=== PATIENT | female | born 1990 | race Caucasian/White ===

== ENCOUNTER 2018-11-16 19:51 | Emergency (ER) | payer MEDICAID, SELFPAY ==
[2018-11-16 20:16] VITALS: BP 120/75; PULSE 80; RESP 16; TEMP 36.6; O2SAT 100
--- NOTE | 2018-11-16 20:27 | W.ED.GENAD ---
Discharge Plan Disposition Patient Disposition: HOME Condition: Stable Discharge Details Chief Complaint: FlankPain Clinical Impression: Renal colic on left side Primary Care Provider: Eder Betts ED Provider: Erick Garcia Home Meds and New Rx's Prescriptions: New ondansetron 4 mg tablet,disintegrating 4 mg PO TID PRN (Reason: nausea and vomiting) 5 Days Qty: 30 RF: 0 Discharge Instructions Instructions: Renal Colic (ED) Additional Instructions: follow up with your OBGYN provider take 1000mg tylenol every 6 hours for pain as needed for nausea take 1-2 tablets of the zofran if pain significantly worsens despite tylenol or you have persistent vomit return to the emergency department for reevaluation Medical Decision Making 28 yo female who is 37 weeks with her 1st child and due Dec 07, comes in with left flank pain and n/v off and on for 1 month and worsened again tonight. She has been seen at [place] and [place] recently in the past few weeks and states she had an u/s done showing likely kidney stone on the left per pt. Tonight she had acute onset of similar symptoms, tried taking tylenol but had vomit so came here. Localizes pain to the left cva area. HAs no abdominal tenderness on exam. Her symptoms due seem consistent with renal colic. No fevers or urinary symptoms so less liikely pyelo. No hypoxia, tachycardia or pleuritic chest pain so doubt PE and no evidence of dvt on exam. No abdominal tenderness to suggest pathology such as appendicitis. WIll provide IVF and nausea medicine at her request and monitor pt's nausea better, and pain improved with tylenol. I got records from [facility] and she had an u/s on 10/31 showing grade 2 hydro on the left and intact ureteral jet though doesn't exclude obstructing stone. She still has no abdominal pain. She feels comfortable enough to be d/c'd and has f/u with her ob in the AM. She will be d/c'd with antiemetics and advised f/u with ob and return if worsening Differential Diagnosis kidney stone, pyelo, back spasm Lab Data Lab results reviewed: Yes I reviewed the patient's lab results. HPI General Mode of arrival: ambulatory. Date/Time Provider Initiated Documentation: 11/16/18 20:14. Limitations to Documentation: no limitations. Information obtained by: patient. History of Present Illness 28 year old F presents to the emergency department with the chief complaint of left flank pain, described as moderate, Quality is described as stabbing, and it has been intermittent. No relieving factors improve symptom(s), No exacerbating factors reported . Patient notes nausea/vomiting. Patient did receive the following treatments prior to arrival, none Related Data Home Medications Medication Instructions Recorded Confirmed ondansetron 4 mg PO TID PRN 5 Days #30 tab 11/16/18 Previous Rx's Medication Instructions Recorded ondansetron 4 mg PO TID PRN 5 Days #30 tab 11/16/18 Allergies Allergy/AdvReac Type Severity Reaction Status Date / Time No Known Allergies Allergy Unverified 05/14/16 17:52 General Stated Complaint: FlankPain DINESH: 3 Review of Systems Review of Systems All systems reviewed & are unremarkable except as noted in HPI and below Constitutional Denies chills, Denies fever(s) and Denies weakness Eyes Denies loss of vision ENT Denies change in voice Cardiovascular Denies chest pain and Denies dyspnea Respiratory Denies dyspnea Gastrointestinal Denies abdominal pain Genitourinary Denies dysuria Neurologic Denies loss of vision and Denies weakness Psychiatric Denies depression Allergic/Immunologic Denies urticaria PFSH Social History Smoking/Tobacco Use Status: Former Tobacco Use Exam Const General: cooperative Orientation: alert HENMT Head: normal to inspection Ears: external ears normal General nose exam: external nose normal Mouth: moist mucous membranes Eyes General: appearance normal, both eyes and all related structures Neck Neck: normal visual inspection Resp Effort & Inspection: normal respiratory effort and able to speak in complete sentences Cardio Rate: regular rate Skin General skin exam: no rashes or lesions noted Neuro General: alert and oriented x3 Extrem General: normal to inspection Psych Mental Status: mental status grossly normal Course Vital Signs Temperature 36.6 C 11/16/18 20:16 Pulse 80 11/16/18 20:16 Respiratory Rate 16 11/16/18 20:16 Blood Pressure 120/75 11/16/18 20:16 Pulse Oximetry 100 11/16/18 20:16 Temperature 36.6 C 11/16/18 20:16 Temperature Source Skin 11/16/18 20:16 Pulse 80 11/16/18 20:16 Respiratory Rate 16 11/16/18 20:16 Respiratory Effort 11/16/18 20:19 Blood Pressure 120/75 11/16/18 20:16 Blood Pressure Position Sitting 11/16/18 20:16 Pulse Oximetry 100 11/16/18 20:16 Oxygen Delivery Method Room Air 11/16/18 20:16 Oxygen Flow Rate 0 11/16/18 20:16 Pain Level 8 11/16/18 20:21
--- NOTE | 2018-11-16 20:31 | ED.GENADUL_ITS ---
Discharge Plan Disposition Patient Disposition: HOME Condition: Stable Discharge Details Chief Complaint: FlankPain Clinical Impression: Renal colic on left side Primary Care Provider: Eder Betts ED Provider: Erick Garcia Home Meds and New Rx's Prescriptions: New ondansetron 4 mg tablet,disintegrating 4 mg PO TID PRN (Reason: nausea and vomiting) 5 Days Qty: 30 RF: 0 Discharge Instructions Instructions: Renal Colic (ED) Additional Instructions: follow up with your OBGYN provider take 1000mg tylenol every 6 hours for pain as needed for nausea take 1-2 tablets of the zofran if pain significantly worsens despite tylenol or you have persistent vomit return to the emergency department for reevaluation Medical Decision Making 28 yo female who is 37 weeks with her 1st child and due Dec 07, comes in with left flank pain and n/v off and on for 1 month and worsened again tonight. She has been seen at [place] and [place] recently in the past few weeks and states she had an u/s done showing likely kidney stone on the left per pt. Tonight she had acute onset of similar symptoms, tried taking tylenol but had vomit so came here. Localizes pain to the left cva area. HAs no abdominal tenderness on exam. Her symptoms due seem consistent with renal colic. No fevers or urinary symptoms so less liikely pyelo. No hypoxia, tachycardia or pleuritic chest pain so doubt PE and no evidence of dvt on exam. No abdominal tenderness to suggest pathology such as appendicitis. WIll provide IVF and nausea medicine at her request and monitor pt's nausea better, and pain improved with tylenol. I got records from [place] and she had an u/s on 10/31 showing grade 2 hydro on the left and intact ureteral jet though doesn't exclude obstructing stone. She still has no abdominal pain. She feels comfortable enough to be d/c'd and has f/u with her ob in the AM. She will be d/c'd with antiemetics and advised f/u with ob and return if worsening Differential Diagnosis kidney stone, pyelo, back spasm Lab Data Lab results reviewed: Yes I reviewed the patient's lab results. HPI General Mode of arrival: ambulatory . Date/Time Provider Initiated Documentation: 11/16/18 20:14 . Limitations to Documentation: no limitations . Information obtained by: patient . History of Present Illness 28 year old F presents to the emergency department with the chief complaint of left flank pain, described as moderate, Quality is described as stabbing, and it has been intermittent. No relieving factors improve symptom(s), No exacerbating factors reported . Patient notes nausea/vomiting. Patient did receive the following treatments prior to arrival, none Related Data Home Medications Medication Instructions Recorded Confirmed ondansetron 4 mg PO TID PRN 5 Days #30 tab 11/16/18 Previous Rx's Medication Instructions Recorded ondansetron 4 mg PO TID PRN 5 Days #30 tab 11/16/18 Allergies Allergy/AdvReac Type Severity Reaction Status Date / Time No Known Allergies Allergy Unverified 05/14/16 17:52 General Stated Complaint: FlankPain DINESH: 3 Review of Systems Review of Systems All systems reviewed & are unremarkable except as noted in HPI and below Constitutional Denies chills, Denies fever(s) and Denies weakness Eyes Denies loss of vision ENT Denies change in voice Cardiovascular Denies chest pain and Denies dyspnea Respiratory Denies dyspnea Gastrointestinal Denies abdominal pain Genitourinary Denies dysuria Neurologic Denies loss of vision and Denies weakness Psychiatric Denies depression Allergic/Immunologic Denies urticaria PFSH Social History Smoking/Tobacco Use Status: Former Tobacco Use Exam Const General: cooperative Orientation: alert HENMT Head: normal to inspection Ears: external ears normal General nose exam: external nose normal Mouth: moist mucous membranes Eyes General: appearance normal, both eyes and all related structures Neck Neck: normal visual inspection Resp Effort & Inspection: normal respiratory effort and able to speak in complete sentences Cardio Rate: regular rate Skin General skin exam: no rashes or lesions noted Neuro General: alert and oriented x3 Extrem General: normal to inspection Psych Mental Status: mental status grossly normal Course Vital Signs Temperature 36.6 C 11/16/18 20:16 Pulse 80 11/16/18 20:16 Respiratory Rate 16 11/16/18 20:16 Blood Pressure 120/75 11/16/18 20:16 Pulse Oximetry 100 11/16/18 20:16 Temperature 36.6 C 11/16/18 20:16 Temperature Source Skin 11/16/18 20:16 Pulse 80 11/16/18 20:16 Respiratory Rate 16 11/16/18 20:16 Respiratory Effort 11/16/18 20:19 Blood Pressure 120/75 11/16/18 20:16 Blood Pressure Position Sitting 11/16/18 20:16 Pulse Oximetry 100 11/16/18 20:16 Oxygen Delivery Method Room Air 11/16/18 20:16 Oxygen Flow Rate 0 11/16/18 20:16 Pain Level 8 11/16/18 20:21
[2018-11-16] MEDS: Ondansetron 4 MG/2 ML VIAL IVP (20:41)
[2018-11-16] MEDS: Normal Saline 1,000 ML 1000 ML IV (20:42)
[2018-11-16 20:55] LABS: Abs Immature Grans 0.05 k/cumm (0.0-0.09); Absolute Basophil Count 0.02 k/cumm (0.0-0.2); Absolute Eosinophil Count 0.06 k/cumm (0.0-0.7); Absolute Lymphocyte Count 1.49 k/cumm (1.2-3.4); Absolute Monocyte Count 0.63 k/cumm (0.11-0.7); Absolute Neutrophil Count 8.23 k/cumm (1.2-6.7); Basophils % 0.2; Eosinophils % 0.6; HCT 36.8 % (36.0-46.0); HGB 12.4 g/dL (12.0-15.5); Immature Grans % 0.5; Lymphocytes % 14.2; Mean Corp. HGB Concentration 33.7 g/dL (32.0-36.0); Mean Corpuscular Hemoglobin 29.3 pg (27.0-33.0); Mean Platelet Volume 11.4 fL (8.0-11.0); Neutrophils % 78.5; Platelet Count 139 x1000/uL (130-400); RBC 4.23 m/cumm (4.00-5.20); RBC Distribution Width 13.3 % (11.7-14.6); White Blood Cell Count 10.48 k/cumm (4.4-10.8)
[2018-11-16 21:15] LABS: ALT 15 U/L (12-78); AST 17 U/L (15-37); Albumin 3.1 g/dL (3.4-5.0); Alkaline Phosphatase 107 U/L (46-116); BUN 10 mg/dL (7-18); Bilirubin, Total 0.4 mg/dL (0.2-1.0); Chloride 102 mmol/L (98-107); Glucose 94 mg/dL (70-100); Magnesium 1.6 mg/dL (1.8-2.4); Potassium 3.6 mmol/L (3.5-5.1); Sodium 139 mmol/L (136-145)
[2018-11-16] MEDS: ACETAMINOPHEN 1,000 MG/100 ML BTL 400 MG IVPB (21:40)
[2018-11-16] MEDS: MORPHine 10 MG/ML VIAL 6 MG IM (22:42)
[2018-11-16] MEDS: Ondansetron O.D.T. 4 MG TABEF PO (22:47)
[2018-11-16 23:03] VITALS: BP 118/66; PULSE 82; RESP 16; TEMP 36.6; O2SAT 99
[2018-11-16] MEDS: oxyCODONE 5 MG TAB (23:19)
== END 2018-11-16 23:20 | disposition home or self-care (01) ==
LOC: ER 22:58
PROVIDERS: Emergency Provider Emergency Medicine; PCP Family Medicine
DX: N23 Unspecified renal colic (principal); R11.2 Nausea with vomiting, unspecified; Z33.1 Pregnant state, incidental; Z3A.37 37 weeks gestation of pregnancy; Z87.891 Personal history of nicotine dependence
CPT/HCPCS: 36415; 80053; 96361; 96372; 96374; 96375; 99284; 83735; 85025; J0131; J2270; J2405

== ENCOUNTER 2021-07-16 20:50 | Outpatient (REF) | payer MEDICAID, SELFPAY ==
[2021-07-18 12:04] LABS: COVID-19 RT-PCR UVMMC Result Negative (Negative)
== END 2021-07-16 20:51 | disposition home or self-care (01) ==
LOC: LBN 20:50
PROVIDERS: PCP Family Medicine; Visit Provider Nurse Practitioner Family
DX: J02.9 Acute pharyngitis, unspecified (principal); Z20.822 Contact with and (suspected) exposure to COVID-19
CPT/HCPCS: U0003; 87070

== ENCOUNTER 2022-10-26 13:58 | Emergency (ER) | payer MEDICAID, SELFPAY ==
--- NOTE | 2022-10-26 14:00 | RT.EKG_ITS ---
APPROVED REPORT Exam: Resting ECG Reason for Exam: dizzy Patient Location: E HR:72 bpm ECG Measurements Heart Rate 72 AXIS ID 144 P 56 QRSd 75 QRS 82 QT 368 T 64 QTc 402 Conclusion Sinus rhythm...normal P axis, V-rate 60- 99
[2022-10-26 14:03] VITALS: BP 125/80; PULSE 76; RESP 18; TEMP 36.6; O2SAT 98
[2022-10-26 14:12] VITALS: RESP 18
--- NOTE | 2022-10-26 15:17 | W.ED.GENAD ---
Discharge Plan Disposition Patient Disposition: Home Condition: Improving Discharge Details Clinical Impression: Benign paroxysmal vertigo, Anxiety Primary Care Provider: Eder Betts ED Provider: Slim Guan Home Meds and New Rx's Prescriptions: No Action hydroxyzine HCl 25 mg tablet 1 tab PO PRN PRN Discharge Instructions Instructions: Vertigo (ED), Anxiety (ED) Additional Instructions: Stay well-hydrated and get plenty of rest. Please follow-up with your primary care provider if not improving in the next week. If you develop any new or significant worsening of symptoms, persistent symptoms that will not go away, or change in your condition feel free to return to the emergency department for reassessment. You may continue to take your medication that was previously prescribed. Referrals: Eder Betts [Primary Care Provider] - 1 week (If not improving) Medical Decision Making Patient reports intermittent dizziness for the past 2 weeks. 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 Does state for about a week she has had mild cold symptoms but has been testing negative for COVID and children also recently had illness and have recovered. Physical exam shows a normal neuro exam, on Truong-Hallpike maneuver patient did have slight sensation of dizziness to the right. Immediately went on to perform the Kenyatta maneuver. Monitor patient afterwards and patient stated resolution of symptoms. She was able to walk through the department with no further dizziness. Patient was already prescribed meclizine by a urgent care she saw a couple days ago. Thoroughly also discussed with patient her anxiety type symptoms that I do feel is making this worse. Thoroughly discussed management of anxiety including using the hydroxyzine she is already prescribed and following up with counseling services. At this time I did discuss with patient the options of blood work CT imaging and possible further advanced imaging based upon physical exam and findings I have low suspicion of intracranial mass, cerebellar/posterior stroke, or other intracranial abnormality or after discussion of diagnosis and plan of care patient has no further needs, questions, or concerns and states clear understanding to return to the emergency department for any worsening symptoms. This documentation was generated using [employer] system, please disregard any oddities of phrase or misspellings. HPI General Mode of arrival: ambulatory. Date/Time Provider Initiated Documentation: 10/26/22 14:03. Limitations to Documentation: no limitations. Information obtained by: patient and RN notes reviewed. History of Present Illness 32 year old F presents to the emergency department with the chief complaint of dizziness, described as moderate, Quality is described as other (denies pain ), Patient started experiencing this week(s) (2) and it has been intermittent. Rest improves symptom(s), Movement worsens symptoms . Patient did receive the following treatments prior to arrival, other (Meclizine) Related Data Home Medications Medication Instructions Recorded Confirmed hydroxyzine HCl 25 mg tablet 1 tab PO PRN PRN 10/26/22 10/26/22 Allergies Allergy/AdvReac Type Severity Reaction Status Date / Time amoxicillin Allergy Mild Rash Verified 10/26/22 14:08 General Stated Complaint: Dizzy/Sync DINESH: 3 Review of Systems Constitutional Constitutional: Denies chills, Denies fever(s), Denies headache(s) and Denies weakness Eyes Eyes: Denies change in vision and Denies loss of vision ENT Ears, Nose, Mouth, and Throat: Reports vertigo, Reports dizziness, Denies headache(s), Reports nasal congestion (x months) and Denies neck pain Cardiovascular Cardiovascular: Denies chest pain, Denies syncope and Denies dyspnea Respiratory Respiratory: Denies cough and Denies dyspnea Gastrointestinal Gastrointestinal: Denies abdominal pain, Reports nausea and Denies vomiting Genitourinary Genitourinary: Reports system reviewed and no additional complaints, except as documented Musculoskeletal Musculoskeletal: Denies neck pain Integumentary/Breasts Skin/Breast: Denies rash Neurologic Neurologic: Reports as per HPI, Denies confusion, Reports vertigo, Reports dizziness, Denies syncope, Denies headache(s), Denies loss of vision and Denies weakness Psychiatric Psychiatric: Reports anxiety and Denies confusion PFSH All Active Problems Benign paroxysmal vertigo (Acute) Anxiety (Chronic) Social History Smoking/Tobacco Use Status: Former Tobacco Use Smoking risk assessment performed?: Yes Alcohol Intake: current Alcohol Intake frequency: a few times a month Alcohol type: beer Drug use: Never Substance use type: does not use Do you feel safe at home: Yes Do you feel safe in your relationship?: Yes Exam Const General: cooperative, healthy appearing, no acute distress and well groomed Orientation: alert, awake and oriented x3 HENMT Head: normal to inspection Ears: hearing grossly normal bilaterally and TM's normal bilaterally Mouth: oral mucosae normal and moist mucous membranes Throat: posterior oropharynx normal Eyes Visual Dumont: normal visual dumont by confrontation Alignment and Position: alignment normal Periorbital: periorbital findings normal Eyelids: eyelids normal Sclera: sclerae normal Pupils: PERRL EOM: EOM intact bilaterally Neck Neck: normal visual inspection, full ROM, no lymphadenopathy and no meningeal signs Resp Effort & Inspection: normal respiratory effort and able to speak in complete sentences Auscultation: clear to auscultation bilaterally Cardio Rate: regular rate Rhythm: regular rhythm Heart Sounds: S1 normal and S2 normal Neuro General: patient alert, patient awake, patient oriented x3, gait normal, tone normal, moves all extremities, CN's II-XI intact bilaterally and not confused Cognition: normal cognition Speech: speech normal Motor: muscle tone normal throughout, strength 5/5 throughout, no pronator drift, no movement abnormalities noted and no fasciculations Sensory Exam: no sensory deficits noted Coordination: Romberg test normal and Does not sway with eyes open Course Vital Signs Vital signs: Vital Signs Temperature 36.6 C 10/26/22 14:03 Pulse 76 10/26/22 14:03 Respiratory Rate 18 10/26/22 14:03 Blood Pressure 125/80 10/26/22 14:03 Pulse Oximetry 98 10/26/22 14:03 Temperature 36.6 C 10/26/22 14:03 Temperature Source Tympanic 10/26/22 14:03 Pulse 76 10/26/22 14:03 Respiratory Rate 18 10/26/22 14:12 Respiratory Effort Non-Labored 10/26/22 14:12 Respiratory Depth Normal 10/26/22 14:12 Respiratory Pattern Normal 10/26/22 14:12 Blood Pressure 125/80 10/26/22 14:03 Blood Pressure Position Sitting 10/26/22 14:03 Pulse Oximetry 98 10/26/22 14:03 Oxygen Delivery Method Room Air 10/26/22 14:03 Oxygen Flow Rate 0 10/26/22 14:03 Pain Level 0 10/26/22 14:03 PAWSS Have you Been Recently Intoxicated or Drunk Within the Last 30 days?: No Have you Ever Experienced Previous Episodes of Alcohol Withdrawal?: No Have you ever Experienced Withdrawal Seizures?: No Have you ever Experienced Delirium Tremens(DT)s?: No Have you ever undergone Alcohol Rehabilitation Treatment (i.e, inpt ot outpatient treatment programs)?: No Have you ever Experienced Blackouts?: No Have you ever Combined Alcohol with other Downers within the last 90 days?: No Have you ever Combined Alcohol with any other Substance of Abuse during the last 90 days?: No Positive Blood Alcohol level on Presentation? [PCS.BAL]: No Evidence of Increased Autonomic Activity (i.e. HR>120, tremor, sweating, agitation, nausea)?: No Result: 0
== END 2022-10-26 15:51 | disposition home or self-care (01) ==
PROVIDERS: Emergency Provider Nurse Practitioner Family; PCP Family Medicine
DX: H81.11 Benign paroxysmal vertigo, right ear (principal)
CPT/HCPCS: 87637; 93005; 99283; 93010

== ENCOUNTER 2022-11-18 13:33 | Emergency (ER) | payer MEDICAID, SELFPAY ==
[2022-11-18] VITALS (107 sets, daily range): BP systolic 96–118; BP diastolic 59–79; PULSE 71–88; RESP 9–24; TEMP 36.6; O2SAT 97–100
--- NOTE | 2022-11-18 13:30 | RT.EKG_ITS ---
APPROVED REPORT Exam: Resting ECG Reason for Exam: chest pain Patient Location: E HR:71 bpm ECG Measurements Heart Rate 71 AXIS AZ 140 P -28 QRSd 74 QRS 77 QT 365 T 31 QTc 398 Conclusion Sinus rhythm...normal P axis, V-rate 60- 99
--- NOTE | 2022-11-18 14:22 | ED.GENADUL_ITS ---
Discharge Plan Disposition Patient Disposition: Home Condition: Stable Discharge Details Clinical Impression: Anxiety, Chest pain Primary Care Provider: Eder Betts ED Provider: Ron King Home Meds and New Rx's Prescriptions: Continued hydroxyzine HCl 25 mg tablet 1 tab PO PRN PRN lorazepam 0.5 mg tablet 0.5 mg PO Q8H PRN Label Comments: TAKE ONE TABLET BY MOUTH EVERY 8 HOURS NEEDED FOR ANXIETY Discharge Instructions Additional Instructions: Please follow-up with your program specialist tomorrow as scheduled. Please follow-up with your primary care physician. Call today to arrange follow-up. Return to the ER immediately for any worsening or new concerning symptoms. Referrals: Eder Betts [Primary Care Provider] - Medical Decision Making 1424??32-year-old female with history of anxiety disorder and chronic headaches, here with burning chest discomfort over the past 4 to 5 days after stopping propanolol which she had been on for the past 1 to 2 weeks for treatment of headaches. Considered PE. PERC applies. Presentation is not consistent with ACS. EKG was reviewed and interpreted by me: Sinus rhythm 71 bpm, normal axis, nondiagnostic. Please see report. Suspect costochondritis versus anxiety. Anxiety certainly contributing to presentation today. Considered thyroid dysfunction. Patient notes she has not had thyroid level sent. I will provide Valium 5 mg orally. Plan to obtain screening labs and reassess. --Acetaminophen administered for headache. 1550 --labs reviewed and nondiagnostic. Normal thyroid function. Normal troponin. No significant electrolyte abnormalities. Patient reassessed and notes feeling much better. -- Chest x-ray reviewed and interpreted by me: No pneumothorax. No acute cardiopulmonary disease. Plan for discharge with outpatient follow-up. Usual customary discharge instructions reviewed with the patient. She has follow-up tomorrow with psychiatry. She understands importance of maintaining this appointment and that she can return to the [facility] should she have worsening or new concerning symptoms. Lab Data Lab results reviewed: Yes I reviewed the patient's lab results. Labs: Laboratory Tests Range/Units 11/18/22 11/18/22 14:30 14:30 WBC (4.4-10.8) 10^3/uL 5.80 RBC (3.93-5.22) 10^6/uL 3.97 Hgb (11.2-15.7) g/dL 11.6 Hct (36.0-46.0) % 35.3 L MCV (80-95) fL 89 MCH (27.0-33.0) pg 29.2 MCHC (32.0-36.0) % 32.9 RDW (11.7-14.6) % 12.4 Plt Count (130-400) 10^3/uL 240 MPV (8.0-11.0) fL 9.6 Immature Gran % 0.2 Neutrophils % 60.4 Lymphocytes % 29.5 Monocytes % 7.8 Eosinophils % 1.2 Basophils % 0.9 Nucleated RBC % (0.0-0.3) % 0.0 Absolute Neutrophils (1.2-6.7) 10^3/uL 3.51 Absolute Lymphocytes (1.2-3.4) 10^3/uL 1.71 Absolute Monocytes (0.1-0.8) 10^3/uL 0.45 Absolute Eosinophils (0.0-0.7) 10^3/uL 0.07 Absolute Basophils (0.0-0.2) 10^3/uL 0.05 Sodium (136-145) mmol/L 140 Potassium (3.5-5.1) mmol/L 3.6 Chloride (98-107) mmol/L 105 Carbon Dioxide (21.0-32.0) mmol/L 30.1 Anion Gap (3-11) mmol/L 4.9 BUN (7-18) mg/dL 11 Creatinine (0.55-1.02) mg/dL 0.9 Est GFR (CKD-EPI 2020) (mL/min/1.73m2) 87.11 Glucose (74-106) mg/dL 140 H Calcium (8.5-10.1) mg/dL 8.8 Magnesium (1.8-2.4) mg/dL 2.1 Total Bilirubin (0.2-1.0) mg/dL 0.5 AST (15-37) U/L 16 ALT (14-59) U/L 14 Alkaline Phosphatase (46-116) U/L 35 L Troponin I (<or=60) ng/L < 50 Total Protein (6.4-8.2) g/dL 7.1 Albumin (3.4-5.0) g/dL 3.9 TSH (0.36-3.74) uIU/mL 0.58 HPI General Mode of arrival: ambulatory . Date/Time Provider Initiated Documentation: 11/18/22 13:49 . Limitations to Documentation: no limitations . Information obtained by: patient . HPI Narrative: 32-year-old female presents with chief complaint of chest discomfort. Patient notes burning chest discomfort, localized to above her left breast, worse when she drinks fluids and also with excitement. Discomfort is described as intermittent. She does note associated anxiety. She has a history of anxiety disorder and anxiety has been worse recently. Patient states she has history of chronic headaches and was prescribed propanolol recently. She took propanolol for 8 days and noticed that she was frequently lightheaded and dizzy. Her PCP decreased dosing and symptoms persisted. She discontinued propanolol on Tuesday and dizziness resolved. She has had intermittent chest discomfort since Tuesday. Patient does note she has appointment with a psychiatrist tomorrow for her anxiety. She has no suicidal ideation. Related Data Home Medications Medication Instructions Recorded Confirmed hydroxyzine HCl 25 mg tablet 1 tab PO PRN PRN 10/26/22 11/18/22 lorazepam 0.5 mg tablet 0.5 mg PO Q8H PRN 11/18/22 11/18/22 Allergies Allergy/AdvReac Type Severity Reaction Status Date / Time amoxicillin Allergy Mild Rash Verified 10/26/22 14:08 General Stated Complaint: Chest Pain DINESH: 3 Review of Systems All systems reviewed & are unremarkable except as noted in HPI and below Constitutional Constitutional: Denies fever(s) Cardiovascular Cardiovascular: Reports as per HPI Psychiatric Psychiatric: Reports as per HPI PFSH All Active Problems (Updated 11/18/22 @ 16:05 by Ron King MD) Benign paroxysmal vertigo (Acute) Anxiety (Chronic) Chest pain (Acute) Social History Smoking/Tobacco Use Status: Former Tobacco Use Smoking risk assessment performed?: Yes Alcohol Intake: current Alcohol Intake frequency: a few times a month Alcohol type: beer Drug use: Never Substance use type: does not use Do you feel safe at home: Yes Do you feel safe in your relationship?: Yes Exam Const General: cooperative and no acute distress HENMT Mouth: moist mucous membranes Eyes Conjunctivae: normal conjunctivae Sclera: normal sclerae EOM: EOM intact bilaterally Neck Neck: trachea midline and supple Thyroid: thyroid normal Resp Auscultation: clear to auscultation bilaterally, no rales, no rhonchi and no wheezes Cardio Rate: regular rate and not tachycardic Rhythm: regular rhythm GI Palpation: soft, not firm, no guarding, no masses, not rigid and nontender Skin General skin exam: no rashes or lesions noted Neuro General: patient alert, patient awake, patient oriented x3 and tone normal Extrem General: no edema Psych Appearance: grossly normal Mental Status: mental status grossly normal Speech and Movement: speech and movement normal Mood: anxious mood Attitude: cooperative Thought Process: normal Thought Content: normal Insight: insight good Judgment: judgment good Course Vital Signs Vital signs: Vital Signs Temperature 36.6 C 11/18/22 13:39 Pulse 88 11/18/22 13:39 Respiratory Rate 18 11/18/22 13:39 Blood Pressure 96/59 L 11/18/22 13:39 Pulse Oximetry 97 11/18/22 13:39 Temperature 36.6 C 11/18/22 13:39 Temperature Source Tympanic 11/18/22 13:39 Pulse 83 11/18/22 13:46 Respiratory Rate 11 L 11/18/22 13:48 Respiratory Effort Non-Labored 11/18/22 13:47 Respiratory Depth Normal 11/18/22 13:47 Respiratory Pattern Normal 11/18/22 13:47 Blood Pressure 112/77 11/18/22 13:46 Blood Pressure Position Supine 11/18/22 13:39 Pulse Oximetry 99 11/18/22 13:48 Oxygen Delivery Method Room Air 11/18/22 13:39 Oxygen Flow Rate 0 11/18/22 13:39 Pain Level 0 11/18/22 13:39
[2022-11-18] MEDS: diazePAM 5 MG TAB PO (14:29)
[2022-11-18 14:37] LABS: Abs Immature Grans 0.01 10^3/uL (0.0-0.06); Absolute Basophil Count 0.05 10^3/uL (0.0-0.2); Absolute Eosinophil Count 0.07 10^3/uL (0.0-0.7); Absolute Lymphocyte Count 1.71 10^3/uL (1.2-3.4); Absolute Monocyte Count 0.45 10^3/uL (0.1-0.8); Absolute Neutrophil Count 3.51 10^3/uL (1.2-6.7); Basophils % 0.9; Eosinophils % 1.2; HCT 35.3 % (36.0-46.0); HGB 11.6 g/dL (11.2-15.7); Immature Grans % 0.2; Lymphocytes % 29.5; MCH 29.2 pg (27.0-33.0); MCHC 32.9 % (32.0-36.0); MCV 89 fL (80-95); MPV 9.6 fL (8.0-11.0); Monocytes % 7.8; Neutrophils % 60.4; Platelet Count 240 10^3/uL (130-400); RBC 3.97 10^6/uL (3.93-5.22); RDW 12.4 % (11.7-14.6); RDW-SD 40.8 fL
[2022-11-18 15:08] LABS: ALT 14 U/L (14-59); AST 16 U/L (15-37); Albumin 3.9 g/dL (3.4-5.0); Alkaline Phosphatase 35 U/L (46-116); Anion Gap 4.9 mmol/L (3-11); BUN 11 mg/dL (7-18); Bilirubin, Total 0.5 mg/dL (0.2-1.0); CO2 30.1 mmol/L (21.0-32.0); CREATININE 0.9 mg/dL (0.55-1.02); Calcium 8.8 mg/dL (8.5-10.1); Chloride 105 mmol/L (98-107); Estimated GFR 87.11 (mL/min/1.73m2); Glucose 140 mg/dL (74-106); Magnesium 2.1 mg/dL (1.8-2.4); Potassium 3.6 mmol/L (3.5-5.1); Sodium 140 mmol/L (136-145); TSH (W/Ref FT4) 0.58 uIU/mL (0.36-3.74); Total Protein 7.1 g/dL (6.4-8.2); Troponin I < 50 ng/L (<or=60)
[2022-11-18] MEDS: Ketorolac 15 MG/ML VIAL IVP (15:13)
--- NOTE | 2022-11-18 15:45 | DI.RAD_ITS ---
Exam(s) XR CHEST 2V PA LATERAL EXAM: XR CHEST 2V PA LATERAL CLINICAL HISTORY: chest pain. TECHNIQUE: 2D digital imaging was performed. COMPARISON: No exams were available for comparison FINDINGS: 2 views: Heart size is normal. The mediastinum is not widened. Lungs are clear. No infiltrates nor pleural effusions. IMPRESSION: No acute pulmonary findings. DATA REPOSITORY: RADIATION DOSE DELIVERED:
== END 2022-11-18 16:22 | disposition home or self-care (01) ==
PROVIDERS: Emergency Provider Student in an Organized Health Care Education/Training Program; PCP Family Medicine
DX: R07.89 Other chest pain (principal); F41.9 Anxiety disorder, unspecified
CPT/HCPCS: 36415; 80053; 93005; 96374; 99284; 71046; 83735; 84443; 84484; 85025; 93010; 99285; J1885

== ENCOUNTER 2022-12-15 13:14 | Emergency (ER) | payer MEDICAID, SELFPAY ==
[2022-12-15 13:36] VITALS: BP 124/86; PULSE 80; RESP 15; TEMP 37; O2SAT 98
--- NOTE | 2022-12-15 14:26 | ED.GENADUL_ITS ---
Discharge Plan Disposition Patient Disposition: Home Condition: Stable Discharge Details Clinical Impression: Lymphadenopathy, submandibular Primary Care Provider: Eder Betts ED Provider: Chloé Foreman Home Meds and New Rx's Prescriptions: Continued hydroxyzine HCl 25 mg tablet 1 tab PO Q8H PRN lorazepam 0.5 mg tablet 0.5 mg PO Q8H PRN Patient Comments: TAKE ONE TABLET BY MOUTH EVERY 8 HOURS NEEDED FOR ANXIETY No Action omeprazole 20 mg capsule,delayed release(DR/EC) 20 mg PO DAILY Patient Comments: TAKE 1 CAPSULE BY MOUTH EVERY DAY 30 MINUTES BEFORE EATING ON AN EMPTY STOMACH Discharge Instructions Additional Instructions: Please follow-up with your doctor for your blood work You may try taking Aleksandra and see if it helps with your symptoms Inflammation, such as allergies, viral and bacterial infections can present with lymph nodes that are enlarged, you have no evidence of bacterial source of infection on your exam today so continue with ibuprofen 600 mg 3 times a day, try not to massage the area as this can make the swelling worse Present for labs next week Return earlier should you have any worsening complaints I also start taking your omeprazole again Referrals: Eder Betts [Primary Care Provider] - Discharge Data Discharge Date/Time-TO BE ENTERED AT DEPARTURE: 12/15/22 14:38 Medical Decision Making This 32-year-old female presents with report of throat swelling She actually has some submandibular lymphadenopathy which is very mild She has labs ordered next week which I encouraged her to follow through with She has a sore throat or airway difficulty, her vitals are quite stable She is encouraged to continue taking the omeprazole and refrain from pressing on the areas of concern She is encouraged to see her doctor next week and return earlier should she have new or worsening complaints She is discharged home in stable condition with stable vitals HPI General Date/Time Provider Initiated Documentation: 12/15/22 13:42 . HPI Narrative: This 32-year-old female presents with reports of swelling to the submandibular region started approximately a week ago. She presents for evaluation she just started omeprazole and is concerned that she has an infection of some sort. She denies any difficulty swallowing, chest pain, shortness of breath, fever, chills, or any additional complaints at this time. Related Data Home Medications Medication Instructions Recorded Confirmed hydroxyzine HCl 25 mg tablet 1 tab PO Q8H PRN 10/26/22 12/15/22 lorazepam 0.5 mg tablet 0.5 mg PO Q8H PRN 11/18/22 12/15/22 omeprazole 20 mg capsule,delayed 20 mg PO DAILY 12/15/22 12/15/22 release Allergies Allergy/AdvReac Type Severity Reaction Status Date / Time amoxicillin Allergy Mild Rash Verified 10/26/22 14:08 General Stated Complaint: GenMedical DINESH: 4 PFSH All Active Problems (Updated 12/15/22 @ 14:27 by OLAMIDE Wells) Chest pain (Acute) Lymphadenopathy, submandibular (Acute) Social History Smoking/Tobacco Use Status: Former Tobacco Use Smoking risk assessment performed?: Yes Alcohol Intake: current Alcohol Intake frequency: a few times a month Alcohol type: beer Drug use: Never Substance use type: does not use Do you feel safe at home: Yes Do you feel safe in your relationship?: Yes Exam Narrative Exam Narrative: Patient is some mild swelling to her submandibular glands but is otherwise quite well in appearance, her oropharynx patent, her uvula is midline, she is in no acute distress and she exhibits no signs of stridor She is afebrile, nontoxic, lungs clear to auscultation bilaterally, rate rhythm regular from a cardiovascular standpoint Course Vital Signs Vital signs: Vital Signs Temperature 37.0 C 12/15/22 13:36 Pulse 80 12/15/22 13:36 Respiratory Rate 15 12/15/22 13:36 Blood Pressure 124/86 12/15/22 13:36 Pulse Oximetry 98 12/15/22 13:36 Temperature 37.0 C 12/15/22 13:36 Temperature Source Oral 12/15/22 13:36 Pulse 80 12/15/22 13:36 Respiratory Rate 15 12/15/22 13:36 Blood Pressure 124/86 12/15/22 13:36 Blood Pressure Position Sitting 12/15/22 13:36 Pulse Oximetry 98 12/15/22 13:36 Oxygen Delivery Method Room Air 12/15/22 13:36 Oxygen Flow Rate 0 12/15/22 13:36 Pain Level 0 12/15/22 13:36
== END 2022-12-15 14:38 | disposition home or self-care (01) ==
PROVIDERS: Emergency Provider Physician Assistant; PCP Family Medicine
DX: R59.0 Localized enlarged lymph nodes (principal)
CPT/HCPCS: 99282; 99283

== ENCOUNTER 2023-08-08 04:52 | Outpatient (CLI) | payer MEDICAID, SELFPAY ==
[2023-08-08 12:12] LABS: Abs Immature Grans 0.01 10^3/uL (0.0-0.06); Absolute Basophil Count 0.06 10^3/uL (0.0-0.2); Absolute Eosinophil Count 0.08 10^3/uL (0.0-0.7); Absolute Lymphocyte Count 1.17 10^3/uL (1.2-3.4); Absolute Monocyte Count 0.29 10^3/uL (0.1-0.8); Absolute Neutrophil Count 2.93 10^3/uL (1.2-6.7); Basophils % 1.3; Eosinophils % 1.8; HCT 38.2 % (36.0-46.0); HGB 12.7 g/dL (11.2-15.7); Immature Grans % 0.2; Lymphocytes % 25.8; MCH 29.8 pg (27.0-33.0); MCHC 33.2 % (32.0-36.0); MCV 90 fL (80-95); MPV 10.4 fL (8.0-11.0); Monocytes % 6.4; Neutrophils % 64.5; Platelet Count 284 10^3/uL (130-400); RBC 4.26 10^6/uL (3.93-5.22); RDW 12.6 % (11.7-14.6); RDW-SD 41.4 fL; WBC 4.54 10^3/uL (4.4-10.8)
[2023-08-08 12:46] LABS: Vitamin D 25 Total 37.3 ng/mL (30-100)
[2023-08-08 12:49] LABS: TSH (W/Ref FT4) 0.87 uIU/mL (0.36-3.74); Vitamin B12 621 pg/mL (193-986)
== END 2023-08-08 04:53 | disposition home or self-care (01) ==
PROVIDERS: PCP Family Medicine; Visit Provider Registered Nurse Critical Care Medicine
DX: R53.83 Other fatigue (principal)
CPT/HCPCS: 36415; 82306; 82607; 84443; 85025

== ENCOUNTER 2023-12-27 04:13 | Outpatient (CLI) | payer MEDICAID, SELFPAY ==
[2023-12-27 15:20] LABS: Vitamin D 25 Total 29.4 ng/mL (30-100)
[2023-12-27 15:30] LABS: Vitamin B12 570 pg/mL (193-986)
== END 2023-12-27 04:14 | disposition home or self-care (01) ==
LOC: LBO 04:14
PROVIDERS: PCP Family Medicine; Visit Provider Registered Nurse Critical Care Medicine
DX: R53.83 Other fatigue (principal)
CPT/HCPCS: 36415; 82306; 82607